=== PATIENT | female | born 1985 | race African-American/Black ===

== ENCOUNTER 2020-10-20 07:21 | Observation (INO) | payer BC ==
[~2020-10-20] VITALS: Ht 167.6 cm; Wt 85.7 kg
[~2020-10-20 07:21] MED LIST: APAP W/CODEINE1 TA2 PO; IBU800 MG PO; SYNTHROID50 MCG PO; TRAMADOL 50 MG50 MG PO
[2020-10-20 08:12] VITALS: BP 124/77
[2020-10-20 15:00] VITALS: BP 124/76
[2020-10-20 15:05] LABS: ALBUMIN 3.5 g/dL (3.4-5.0); MAGNESIUM 1.7 mg/dL (1.8-2.4)
[2020-10-20 15:20] VITALS: BP 129/76
[2020-10-20 17:00] VITALS: BP 124/82
--- NOTE | 2020-10-20 17:09 | O ---
[facility] [place] [address] OPERATIVE REPORT Name: RUPERT LEONARD Room #: 438-P [facility] M.R.#: [id number] Admission: 10/20/20 Attend Phys: Boris Davis MD Discharge: Date of : 83 Report #: [id number] THIS REPORT FOR: cc: Taylor Jensen MD, Cora A. MD Walton, Mark S. MD ~ cc: Taylor Jensen MD DATE OF SERVICE: 10/20/2020 PREOPERATIVE DIAGNOSES: 1. Multinodular goiter. 2. Thyroid mass. POSTOPERATIVE DIAGNOSES: 1. Multinodular goiter. 2. Thyroid mass. OPERATION PERFORMED: Total thyroidectomy. SURGEON: Boris Davis MD ANESTHESIA: General endotracheal with nerve integrity monitoring endotracheal tube. INDICATIONS: The patient is a 35-year-old female referred by Dr. Jensen for a massive thyroid, which is symptomatic, compressive symptoms associated with dysphagia. This mass had grown on followup ultrasound significantly and in light of the above options of surgery were discussed. The largest mass was 5.7 cm. DESCRIPTION OF PROCEDURE: The patient was brought to the operating room and placed supine on the operating table. After adequate general anesthesia was achieved via endotracheal intubation with a nerve integrity monitoring endotracheal tube, the shoulder was placed and neck was extended. She was prepped and draped for thyroidectomy. As a separate part of the procedure, the nerve integrity monitor was applied to the electrodes from the endotracheal tube. Separate electrodes were placed in the soft tissue overlying the sternum and contralateral shoulder. Electrode resistance and impedance was measured and found to be acceptable. Threshold and stimulus intensity parameters were set and the patient was monitored for the entirety of the case for approximately two hours in order to locate and protect the recurrent laryngeal nerve. After prepping and draping, an incision was made in a relaxed contention line [facility] [address] [place] [address] OPERATIVE REPORT Name: RUPERT LEONARD Room #: 438-P [facility]..#: [id number] Admission: 10/20/20 Attend Phys: Boris Davis MD Discharge: Date of : 83 Report #: [id number] above the manubrium and carried down to the underlying platysma. Subplatysmal flaps were elevated superiorly and inferiorly. The soft tissue was divided vertically in the midline down to the strap muscles. These were also retracted laterally. Beginning on the left side, the superior lobe was identified. The superior vessels were sequentially clamped between Ligaclips and divided. The isthmus was elevated off the trachea and taken down with harmonic laura inferiorly, there was a large cyst present inferiorly. The inferior vessels were sequentially identified, clamped between Ligaclips and divided. The inferior parathyroid was found attached to the cyst, was able to be dissected and protected. The dissection then continued into the tracheoesophageal groove, the recurrent laryngeal nerve was found in its usual anatomic position and tracked superiorly to the cricothyroid joint, keeping under direct vision. Snell's ligament was taken down sharply. The superior parathyroid and this side was also attached to the capsule, dissected and protected. This lobe was delivered off the field as specimen to Pathology returning a follicular lesion. No papillary carcinoma was seen. Attention was then turned to the right side. There was a very large mass on this side, beginning superiorly, the superior vessels were sequentially identified, clamped between Ligaclips and divided. Middle thyroid vein was taken down between Ligaclips and the inferior vessels were sequentially identified, clamped between Ligaclips and divided. This was reflected superiorly there and the dissection in the tracheoesophageal groove revealed the recurrent nerve. This again was tracked superiorly to the cricothyroid joint. Snell's ligament was taken down sharply and this lobe was again removed. Both nerves were stimulated at the end of the procedure and found to be intact. On the right side, both parathyroids were also identified. The superior attached to the capsule, the inferior running with the inferior thyroid artery. Once this was complete, the wound was irrigated. Powdered Varun was placed opposite each cricothyroid joint. There was no bleeding. A 10-Panamanian Darren drain was then placed through a separate stab incision, curled into the wound and connected to bulb suction. This was sutured in place with 2-0 silk. The strap muscles were then closed loosely with interrupted 3-0 Vicryl, 3-0 Vicryl was used to close platysma, 4-0 Vicryl deep dermal sutures and a 5-0 running subcuticular Prolene on skin. Mastisol and Steri-Strips were applied followed by an Op-Site. The patient was then returned to anesthesia, awake without difficulty, returned to recovery in good condition. Sponge and needle counts were correct. There were no complications and the blood loss was about 30 mL. POSTOPERATIVE PLAN: The patient will be watched overnight for monitoring of calcium presuming she does well, discharged to home with plans to follow up with me in 1 week for suture removal and 48 hours for drain removal. Written and verbal discharge instructions and emergency precautions have been given to her . [address] [address] OPERATIVE REPORT Name: RUPERT LEONARD Room #: 438-P [facility].R.#: [id number] Admission: 10/20/20 Attend Phys: Boris Davis MD Discharge: Date of : 83 Report #: [id number] DISCHARGE MEDICATIONS: Include; cephalexin 500 mg 1 b.i.d. for 10 days; hydrocodone/acetaminophen 7.5/325, 1-2, every 4-6 hours p.r.n.; ondansetron 4 mg ODT tablet 1 p.o. every 6 hours p.r.n.; Synthroid 100 mcg 1 p.o. every day; Tums 2 tablets t.i.d. DISCHARGE INSTRUCTIONS: She is instructed on light activity, a soft diet, and water precautions. <ELECTRONICALLY SIGNED> By: Boris Davis MD 10/20/20 1709 1235 [id number] Boris Davis MD /nt
--- NOTE | 2020-10-20 18:36 | NUR ---
PT RECEIVED FROM REC RM AT 1445 ALERT AND IN SOME PAIN. IV MORPHINE GIVEN W/ SOME RELIEF. DOSING OFF AND ON. TAKING SOME COLD WATER AND APPLE SAUCE. FAMILY BRINGING IN DINNER. UP TO BATHROOM W/ ASSIST AND DID WELL. BLOODY DRAINAGE IN SHOLA DRAIN. DSNG DRY. HOB ELEVATED.
[2020-10-20 20:10] VITALS: BP 121/80
--- NOTE | 2020-10-21 03:40 | NUR ---
TODAY THIS PT HAS HAD SOME STATED PAIN IN HER NECK AND THROAT AREA DUE TO SURGERY AND THAT WAS TAKEN CARE OF WITH PAIN MEDICATION. SHE HAS OTHERWISE BEEN TOLERATING HER FLUIDS WELL ANTIBIOTICS WELL. THUS FAR HER SHOLA DRAIN HAS HAD 10 ML OUT AND SHE DID TEACH BACK ON HOW TO EMPTY THE SHOLA DRAIN. SHE HAS OTHERWISE BEEN ASLEEP FOR SOME OF THE NIGHT AWAITING FOR THE NEXT PLAN.
[2020-10-21 04:00] VITALS: BP 107/69
[2020-10-21 07:53] VITALS: BP 107/68
--- NOTE | 2020-10-21 09:08 | NUR ---
ASSESSMENT: CM REVIEWED CHART AND SPOKE WITH PATIENT AT THE BEDSIDE. PT IS ALERT AND ORIENTED X4. PT IS S/P THYROIDECTOMY. PT REPORTS LIVING WITH FAMILY. PT REPORTS BEING FULLY INDEPENDENT WITH ADLS AND AMBULATION. PT HAS NO PAST HX OF SNF OR HH. CM DISCUSSED ROLE. PT DOES NTO ANTICIAPTE HAVING ANY NEEDS FROM CM. CM WILL CONTINUE TO FOLLOW TO ASSIST NEEDED. PT REPORTS HER FAMILY IS SUPPORTIVE.
--- NOTE | 2020-10-21 09:59 | NUR ---
Assumed care of pt at 0700. Pt a&ox4. Pain controlled with prn pain meds. Calcium 8.1 this am. Provider notified. Stated patient ok to go home with J.P. drain in place. RA. Up ad star. Will discharge pt to home.
[2020-10-21 10:38] VITALS: BP 107/68
--- NOTE | 2020-10-22 11:07 | PATH ---
[facility] [address] [place] [address] PATHOLOGY RPT PROCEDURE Name: RUPERT RAMIREZ Room #: 438-P DIONNE Sutherland#: [id number] Admission: 10/20/20 Date of : 83 Discharge: 10/21/20 Report #: [id number] Path Case #: [id number] [facility] Accession Number: [id number] . 01 Material submitted: . PART A: thyroid gland - LEFT THYROID WITH ISTHMUS FS. Modifiers: left PART B: thyroid gland - RIGHT THYROID LOBE. Modifiers: right . 01 Clinical history: . MULTINODULAR GOITER THYROID MASS . 02 Frozen section diagnosis: . FROZEN SECTION DIAGNOSIS: (Bryanna Aranda M.D.): . FSA1 and TPA2. Left thyroid with isthmus, lobectomy: - Multiple nodules, two submitted for frozen section, other used for TPA2. - Mixed macro and micronodular architecture along with prior biopsy site changes and hemorrhage as well as repair. . These findings are discussed with Dr. Boris Davis in OR1 at [facility] and a written report is placed in the patient's chart. . Frozen section performed at [facility], [address] [place] [address]. . . FROZEN SECTION GROSS DESRIPTION: The specimen is received from the OR labeled with the patient's name, and "left thyroid lobe with isthmus" consists of a 12.8 gram unoriented thyroid lobectomy measuring approximately 4.8 x 3.5 x 2.0 cm. The surface has multiple germán and is irregular. The germán are removed and the capsular surface is inked black. The specimen is serially sectioned to show multiple nodules ranging from 0.8 cm to approximately 1.2 cm. The largest of the nodules shows a central bright yellow focus, and it measures 1.2 x 1.1 x 0.8 cm. At this point a administrative representative section of the largest nodule and an additional smaller nodule are submitted for frozen section as FSA1. This is subsequently submitted for permanent sections as A1. An additional nodule is used for touch preparation labeled TPA2 (represents multiple nodules within the thyroid parenchyma). Senior Statistical Programmer section of the nodule is submitted along with the remainder half of the larger lesion in A2. The remainder of the entire thyroid gland is submitted for permanent sections in A3-A10. (IUV/db; 10/20/2020) IZV/LBQ . 02 Diagnosis: A. Thyroid, left thyroid lobe with isthmus, lobectomy: [address] [address] PATHOLOGY RPT PROCEDURE Name: AISHAFRITZAMBROSE MANUEL Room #: 438-P DIONNE Sutherland#: [id number] Admission: 10/20/20 Date of : 83 Discharge: 10/21/20 Report #: [id number] Path Case #: [id number] - Multinodular hyperplasia with macrofollicles and microfollicles and rare dominant nodule. - Previous biopsy site changes with mild fibrosis, hemosiderin laden macrophages and inflammation, consistent with repair. - Negative for malignancy. . Thymus, left thyroid lobectomy: - Incidental thymus measuring 1.3 x 0.7 x 0.3 cm with reactive changes. . Parathyroid, left thyroid lobectomy: - 6 mm parathyroid gland associated with a parathyroid cyst measuring at least 0.5 cm. - Negative for malignancy. . Lymph node, left thyroid lobectomy: - Incidental minute reactive lymph node (0/1). . B. Thyroid, right thyroid lobe, lobectomy: - Multinodular hyperplasia with macrofollicles and microfollicles and rare dominant nodule. - Previous biopsy site changes with mild fibrosis, hemosiderin laden macrophages and inflammation, consistent with repair. - Negative for malignancy. (IUV:cece; 10/21/2020) S 10/21/2020 1420 Local . 02 Electronically signed: Janessa Aranda MD, Pathologist NPI- [id number] . 01 Gross description: . A. SEE FROZEN SECTION GROSS DESCRIPTION. . B. The specimen is received in formalin, labeled "Rupert Ramirez, right thyroid lobe". Received is a 40 g unoriented thyroid lobe measuring 6.4 x 4.3 x 3.8 cm in greatest dimensions. The capsule is disrupted and roughened in appearance. The specimen is inked blue. Sectioning reveals several well-demarcated pink-dickey nodules ranging in size from 0.5-2.8 cm in maximum dimensions, several of which grossly abut the inked capsule. Possible parathyroid tissue is identified measuring 1.7 cm in maximum dimensions. The remainder of the lobe is comprised of normal red-brown thyroid parenchyma. With a slight amount of hemorrhage identified. Senior Statistical Programmer sections of the thyroid and nodules are submitted in cassettes B1 through B5. The possible parathyroid tissue is quadrisected and entirely submitted in cassettes B6 and B7. (CAA; 10/20/2020) QAC/LBQ 10/21/2020 1413 Local [facility] [address] [place] [address] PATHOLOGY RPT PROCEDURE Name: RUPERT RAMIREZ Room #: 438-P [facility] Margoth Sutherland#: [id number] Admission: 10/20/20 Date of : 83 Discharge: 10/21/20 Report #: [id number] Path Case #: [id number] . 02 Microscopic: . . . 02 Pathologist provided ICD-10: E04.9, E04.1 . 02 CPT . 698281, 291046, 648119, 167209, 836552, 903550, [id number] Specimen Comment: A courtesy copy of this report has been sent to [phone] Specimen Comment: Report sent to Specimen Comment: A duplicate report has been generated due to demographic updates. Performed at: 01 [facility] [address], [place], [place] [id number] MD Nicko Campbell MD Phone: [phone] Performed at: 02 [facility] [place] [address] [place], [place] [id number] MD Bryanna Aranda MD Phone: [phone]
== END 2020-10-21 11:33 | disposition home or self-care (01) ==
LOC: OR 07:21 → TBA 13:21 → OR 13:42 → 4S 14:50 → OR 14:51 → 4S 10-21 11:33
PROVIDERS: ADMIT Otolaryngology Plastic Surgery within the Head & Neck; ATTEND Otolaryngology Plastic Surgery within the Head & Neck
DX: E04.2 Nontoxic multinodular goiter (principal); R13.10 Dysphagia, unspecified; Z20.822 Contact with and (suspected) exposure to COVID-19; Z79.899 Other long term (current) drug therapy
CPT/HCPCS: 50010; 50101; 50386; 50403; 52190; 52220; 52287; 56524; 56526; 56528; 56760; 57006; 58902; 62110; 62900; 65130; 65133; 70005